=== PATIENT | male | born 1995 | race Caucasian/White ===

== ENCOUNTER 2017-08-19 23:13 | Emergency (ER) | END 2017-08-20 05:15 | disposition home or self-care (01) ==

== ENCOUNTER 2017-11-11 13:52 | Emergency (ER) | END 2017-11-11 15:00 | disposition home or self-care (01) ==

== ENCOUNTER 2017-12-11 12:01 | Emergency (ER) | END 2017-12-11 13:45 | disposition home or self-care (01) ==

== ENCOUNTER 2018-06-02 18:07 | Emergency (ER) | END 2018-06-02 19:11 | disposition left against medical advice (07) ==

== ENCOUNTER 2018-07-13 21:18 | Emergency (ER) | payer SELFPAY ==
[~2018-07-13] VITALS: Ht 172.7 cm; Wt 72.4 kg
[~2018-07-13 21:18] MED LIST: CLON-379 PO; HYDR-3980 PO; IBUP-1542 PO; IBUP800T48 PO; ONDA4TAB35 PO
[2018-07-13 21:30] VITALS: BP 127/56; PULSE 69; RESP 18; Ht 172.7 cm; Wt 72.4 kg
--- NOTE | 2018-07-13 23:36 | ERD ---
ER Documentation Chief Complaint Chief Complaint C/O LT FOREARM PAIN, REDNESS AND SWELLING X2 DAYS, S/P IV DRUG USE HPI This is a 23-year-old male who was shooting heroin into his left arm yesterday and immediately as he was injecting describes a burning pain around his elbow where he was injecting with some numbness and tingling in his left fingers. His been no bleeding or drainage. No redness or swelling. There is some bruising. No loss of range of motion. No fevers. ROS All systems reviewed and are negative except as per history of present illness. Medications Home Meds Active Scripts Ibuprofen* (Motrin*) 600 Mg Tab, 600 MG PO Q6, #20 TAB Prov:JM DIAZ MD 12/11/17 Ibuprofen* (Motrin*) 800 Mg Tab, 800 MG PO Q6H PRN for PAIN AND OR ELEVATED TEMP, #30 TAB Prov:MORIAH LANGE DO 08/20/17 Hydrocodone/Acetaminophen ([place] 10-325 Tablet) 1 Each Tablet, 1 TAB PO Q6H PRN for PAIN, #20 TAB Prov:MORIAH LANGE DO 08/20/17 Clonidine Hcl* (Clonidine Hcl*) 0.1 Mg Tab, 0.1 MG PO TID, #10 TAB Prov:JAY SNYDER PA-C 09/16/15 Ondansetron Hcl* (Zofran* ODT) 4 mg -ODT Tab.disper, 4 MG PO Q6 PRN for NAUSEA AND/OR VOMITING, #14 TAB Prov:JAY SNYDER PA-C 09/16/15 Allergies Allergies: Coded Allergies: No Known Allergy (Unverified , 12/11/17) PMhx/Soc Hx Alcohol Use: No Hx Substance Use: Yes (WEED , HEROIN ) Hx Tobacco Use: No FmHx Family History: No diabetes Physical Exam Vitals Vital Signs Date Temp Pulse Resp B/P (MAP) Pulse Ox O2 O2 Flow FiO2 Time Delivery Rate 07/13/18 97.8 69 18 127/56 99 21:30 (79) Physical Exam Const: No acute distress Head: Atraumatic Eyes: Normal Conjunctiva ENT: Normal External Ears, Nose and Mouth. Neck: Full range of motion. No meningismus. Resp: Clear to auscultation bilaterally Cardio: Regular rate and rhythm, no murmurs Upper Extremity -left Skin: Left antecubital fossa has some ecchymosis, no erythema or warmth Compartments: Soft Motor: Full active range of motion shoulder/elbow/wrist/hand Sensation: Intact shoulder/pinky/middle finger/thumb web space Bones: Nontender humerus/elbow/forearm/wrist/hand Snuffbox: Nontender Joints: No effusion Pulses/Perfusion: 2+ radial, Capillary refill < 2 seconds Procedures/MDM 23-year-old male presents with pain in his injection site with some ecchymosis. There is no evidence of infection. He describes some numbness and tingling in his fingertips but he is neurovascularly intact. Recommended he discontinue using heroin. He can ice his elbow and take anti-inflammatories at home. Return for any fevers redness swelling purulent drainage or any other concern. Patient counseled regarding my diagnostic impression and care plan. Prior to discharge all questions answered. Pt agrees with treatment plan and understands strict return precautions. Pt is instructed to follow up with primary care provider within 24-48 hours. Precautionary instructions provided including instructions to return to the ER if not improving or for any worsening or changing symptoms or concerns. Departure Diagnosis: Primary Impression: Pain of left arm Condition: Stable Patient Instructions: Drug Abuse Additional Instructions: Llame al doctor DORA y citlaly camron SCOTT PARA DENTRO DE 1-2 MAYS.Dgale a la secretaria que nosotros le instruimos hacer esta scott.Avise o llame si goodman condicin se empeora antes de la scott. Regresa aqui si peor o no mejor. GARRY RAMIREZ PA-C Jul 13, 2018 23:35
== END 2018-07-14 01:20 | disposition home or self-care (01) ==
LOC: FTE 21:18
DX: S40.022A Contusion of left upper arm, initial encounter (principal); X58.XXXA Exposure to other specified factors, initial encounter; Y92.9 Unspecified place or not applicable
CPT/HCPCS: 99282

== ENCOUNTER 2018-09-17 23:15 | Emergency (ER) | payer SELFPAY ==
[~2018-09-17] VITALS: Ht 172.7 cm; Wt 66.8 kg
[2018-09-17 23:17] VITALS: Ht 172.7 cm; Wt 66.8 kg
[2018-09-18] MEDS ORDERED: ONDANSETRON 4 MG INJ IV STA (02:56)
[2018-09-18] MEDS ORDERED: morphine 4 MG/ML VIAL IV STA (02:56)
[2018-09-18] MEDS ORDERED: SOD CHLORIDE 0.9% 1,000 ML IV STA (03:02)
[2018-09-18] MEDS ORDERED: DIPHENHYDRAMINE 50 MG INJ IV ONE (03:30)
--- NOTE | 2018-09-18 03:33 | ERD ---
ER Documentation Chief Complaint Chief Complaint RECTAL PAIN AND BLEEDING - HX OF HEMORROIDS HPI 23-year-old male with history of IV drug use presents with complaint of rectal pain, bright red blood in stool, and lower abdominal pain. States that the symptoms started yesterday. Denies any history of hemorrhoids. Denies any treatments. Denies any n fevers, chills, chest pain, ausea, vomiting, diarrhea, constipation. ROS All systems reviewed and are negative except as per history of present illness. Medications Home Meds Active Scripts Ibuprofen* (Motrin*) 600 Mg Tab, 600 MG PO Q6 for pain, #30 TAB Prov:LORNA LAMB 09/18/18 Ibuprofen* (Motrin*) 600 Mg Tab, 600 MG PO Q6, #20 TAB Prov:JM DIAZ MD 12/11/17 Ibuprofen* (Motrin*) 800 Mg Tab, 800 MG PO Q6H PRN for PAIN AND OR ELEVATED TEMP, #30 TAB Prov:MORIAH LANGE DO 08/20/17 Hydrocodone/Acetaminophen ([place] 10-325 Tablet) 1 Each Tablet, 1 TAB PO Q6H PRN for PAIN, #20 TAB Prov:MORIAH LANGE DO 08/20/17 Clonidine Hcl* (Clonidine Hcl*) 0.1 Mg Tab, 0.1 MG PO TID, #10 TAB Prov:JAY SNYDER PA-C 09/16/15 Ondansetron Hcl* (Zofran* ODT) 4 mg -ODT Tab.disper, 4 MG PO Q6 PRN for NAUSEA A ND/OR VOMITING, #14 TAB Prov:JAY SNYDER PA-C 09/16/15 Allergies Allergies: Coded Allergies: No Known Allergy (Unverified , 12/11/17) PMhx/Soc Medical and Surgical Hx: pt denies Surgical Hx History of Surgery: No Hx Alcohol Use: No Hx Substance Use: Yes (IV drugs) Hx Tobacco Use: No Smoking Status: Never smoker FmHx Family History: No diabetes, No coronary disease, No other Physical Exam Vitals Vital Signs Date Temp Pulse Resp B/P (MAP) Pulse Ox O2 O2 Flow FiO2 Time Delivery Rate 09/17/18 98.0 77 16 113/74 98 23:17 (87) Physical Exam Const: No acute distress Head: Atraumatic Eyes: Normal Conjunctiva ENT: Normal External Ears, Nose and Mouth. Neck: Full range of motion. No meningismus. Resp: Clear to auscultation bilaterally Cardio: Regular rate and rhythm, no murmurs Abd: Normal bowel sounds. Tenderness to palpation in the lower abdomen bilaterally. Skin: No petechiae or rashes Back: No midline or flank tenderness Ext: No cyanosis, or edema rectal: No masses palpated in the external/internal rectum. No hemorrhoids visualized. There is tenderness to palpation in the rectum internally. Neur: Awake and alert Psych: Normal Mood and Affect Result Diagram: 09/18/18 0328 09/18/18 0328 Results 24 hrs Laboratory Tests Test 09/18/18 03:28 09/18/18 05:51 White Blood Count 7.9 10^3/ul Red Blood Count 4.38 10^6/ul Hemoglobin 12.4 g/dl Hematocrit 38.2 % Mean Corpuscular Volume 87.2 fl Mean Corpuscular Hemoglobin 28.3 pg Mean Corpuscular Hemoglobin Concent 32.5 g/dl Red Cell Distribution Width 13.2 % Platelet Count 182 10^3/UL Mean Platelet Volume 11.1 fl Immature Granulocytes % 0.300 % Neutrophils % 51.5 % Lymphocytes % 37.2 % Monocytes % 6.4 % Eosinophils % 3.7 % Basophils % 0.9 % Nucleated Red Blood Cells % 0.0 /100WBC Immature Granulocytes # 0.020 10^3/ul Neutrophils # 4.1 10^3/ul Lymphocytes # 2.9 10^3/ul Monocytes # 0.5 10^3/ul Eosinophils # 0.3 10^3/ul Basophils # 0.1 10^3/ul Nucleated Red Blood Cells # 0.0 10^3/ul Sodium Level 143 mmol/L Potassium Level 4.0 mmol/L Chloride Level 109 mmol/L Carbon Dioxide Level 25 mmol/L Anion Gap 9 Blood Urea Nitrogen 14 mg/dl Creatinine 0.89 mg/dl Est Glomerular Filtrat Rate mL/min > 60 mL/min Glucose Level 96 mg/dl Calcium Level 9.1 mg/dl Total Bilirubin 0.2 mg/dl Direct Bilirubin 0.00 mg/dl Indirect Bilirubin 0.2 mg/dl Aspartate Amino Transf (AST/SGOT) 19 IU/L Alanine Aminotransferase (ALT/SGPT) 11 IU/L Alkaline Phosphatase 63 IU/L Total Protein 6.9 g/dl Albumin 4.3 g/dl Globulin 2.60 g/dl Albumin/Globulin Ratio 1.65 Lipase 57 U/L Bedside Urine pH (LAB) 6.0 Bedside Urine Protein (LAB) Negative Bedside Urine Glucose (UA) Negative Bedside Urine Ketones (LAB) Negative Bedside Urine Blood Negative Bedside Urine Nitrite (LAB) Negative Bedside Urine Leukocyte Esterase (L Negative Current Medications Medications Dose Sig/Jax Start Time Status Last (Trade) Ordered Route PRN Stop Time Admin Dose Reason Admin Morphine 4 mg ONCE STAT 09/18/18 DC 09/18/18 Sulfate IV 02:56 03:10 (morphine) 09/18/18 02:58 Ondansetron 4 mg ONCE STAT 09/18/18 DC 09/18/18 HCl (Zofran IV 02:56 03:10 Inj) 09/18/18 02:58 Sodium 1,000 ml @ Q1H STAT 09/18/18 DC 09/18/18 Chloride 1,000 mls/hr IV 03:02 03:10 09/18/18 04:01 25 mg ONCE ONCE 09/18/18 DC 09/18/18 Diphenhydrami IV 03:30 03:36 ne HCl 09/18/18 03:31 (Benadryl) Sodium 100 ml @ ud STK-MED 09/18/18 DC 09/18/18 Chloride ONCE .ROUTE 04:06 04:28 09/18/18 04:07 Iohexol 150 ml STK-MED 09/18/18 DC 09/18/18 (Omnipaque ONCE .ROUTE 04:06 04:27 300mg/ ml) 09/18/18 04:07 Procedures/MDM DIAGNOSTIC IMAGING REPORT Patient: DUYEN MEJIA : 1995 Age: 23 Sex: M MR #: [id number] DOS: 09/18/18 0256 Ordering MD: LORNA LAMB Location: [facility] Room/Bed: PROCEDURE: CT Abdomen and Pelvis with contrast. CLINICAL INDICATION: Abdominal pain TECHNIQUE: CT scan of the abdomen and pelvis with contrast was performed on a multi-detector high-resolution CT scanner. The patient was scanned following intravenous administration of 100 ml Omnipaque-300 nonionic contrast. Coronal and sagittal reformatted images obtained from the axial source images. Images were reviewed on a high-resolution PACS workstation. Exam CTDI 6.53 mGy Exam DLP 396.37 mGy-cm DICOM images are available. One or more of the following dose reduction techniques were utilized: 1.) Automated exposure control 2.) Adjustment of the mA +/- kV according to patient's size 3.) Use of iterative reconstruction technique. COMPARISON: None. FINDINGS: CT abdomen: LOWER THORAX: Lung bases are clear. LIVER AND GALLBLADDER: There is trace intrahepatic periportal edema. The liver and gallbladder otherwise appear normal. SPLEEN: Normal. PANCREAS: Normal. ADRENAL GLANDS: Normal. KIDNEYS: The kidneys enhance symmetrically. No hydronephrosis or abnormal perinephric fluid. VASCULATURE: Negative for aortic aneurysm or dissection. LYMPH NODES: No significant retroperitoneal or mesenteric lymphadenopathy. BOWEL AND MESENTERY: Stomach and small bowel are unremarkable. A normal appendix is identified. The large bowel is unremarkable. CT pelvis: The urinary bladder appears normal. There is no free fluid in the pelvis. No significant pelvic lymphadenopathy. Bones: Regional bones and superficial soft tissues are grossly unremarkable for age. IMPRESSION: 1. Trace intrahepatic periportal edema, nonspecific and most likely secondary to recent fluid bolus, otherwise maybe seen in the setting of congestive heart failure or hepatic inflammation. 2. Otherwise normal contrast enhanced CT of the abdomen and pelvis. 3. Normal appendix. RPTAT: [facility] Physician Stan Date Time Electronically viewed and signed by Physician Stan on 09/18/2018 05 :42 xB/ CC: LORNA LAMB [id number] Given patient's complaint of acute rectal pain as well as lower abdominal pain, decision was made to order CT with contrast. This was approved by my supervising physician. Results were within normal limits. I have low suspicion for appendicitis, acute abdomen, bowel obstruction, incarcerated hernia, testicular torsion, or any other emergent condition. Patient most likely suffering from hemorrhoids versus anal fissure. Patient discharged with strict ER precautions. Patient advised to follow up with PMD. All questions answered at discharge. Departure Diagnosis: Primary Impression: Hemorrhoids Hemorrhoid type: unspecified Qualified Codes: K64.9 - Unspecified hemorrhoids Condition: LORNA Gaming Sep 18, 2018 03:33
[2018-09-18] MEDS ORDERED: IOHEXOL 300MG/ML 150 ML BTL ONE (04:06)
[2018-09-18] MEDS ORDERED: SOD CHLORIDE 0.9% 100 ML ONE (04:06)
[2018-09-18] MEDS ORDERED: IBUP-1542 PO (05:51)
[2018-09-18 05:55] VITALS: BP 101/54; PULSE 72; RESP 18
== END 2018-09-18 06:01 | disposition home or self-care (01) ==
LOC: FTE 23:15
DX: K64.9 Unspecified hemorrhoids (principal)
CPT/HCPCS: 74177; 80053; 81003; 83690; 85025; 96374; 96375; 99285; J1200; J2270; J2405; J7030; Q9967

== ENCOUNTER 2019-02-10 22:56 | Emergency (ER) | payer SELFPAY ==
[~2019-02-10] VITALS: Ht 172.7 cm; Wt 70.0 kg
[2019-02-10 23:03] VITALS: BP 102/72; PULSE 68; RESP 19; Ht 172.7 cm; Wt 70.0 kg
== END 2019-02-11 00:30 | disposition left against medical advice (07) ==
LOC: E/R 22:56
DX: Z53.21 Procedure and treatment not carried out due to patient leaving prior to being seen by health care provider (principal)